=== PATIENT | female | born 1995 | race Caucasian/White ===

== ENCOUNTER → 2022-11-10 07:24 | Outpatient (CLI) | payer BC, SELFPAY ==
--- NOTE | ~2022-11-10 | US_ITS ---
EXAMINATION: US abdomen complete DATE: 11/10/2022 07:54 INDICATION: Unspecified abdominal pain TECHNIQUE: Multiple grayscale and Doppler ultrasound images of the abdomen were obtained. COMPARISON: None available FINDINGS: Bowel gas obscures visualization of the pancreas. The visualized portions of the pancreas a re unremarkable. The liver is normal with normal echogenicity and echotexture. No surface nodularity. Normal hepatopetal flow in the main portal vein. The gallbladder is normal with no abnormal wall thi ckening, pericholecystic fluid or stones. The normal common bile duct measures 4 mm. There was no son ographic Estrada sign. The visualized portions of the aorta and inferior vena cava are normal. The spleen measures 10.8 x 4.4 x 5.0 cm. There is a 1.8 cm hypoechoic area in the caudal aspect of th e spleen, consistent with a cyst, lymphangioma, or hemangioma. The right kidney measures 10.0 x 4.9 x 4.7 cm. The left kidney measures 10.5 x 5.1 x 4.8 cm. The kidneys demonstrate normal parenchymal ech ogenicity. There is no hydronephrosis. IMPRESSION: 1. No sonographic correlate for the patient's symptoms. Reviewed, dictated and finalized at location F. EONTOLOGIST
== END ==
PROVIDERS: PCP Nurse Practitioner Family; Visit Provider Nurse Practitioner Family
DX: R10.9 Unspecified abdominal pain (principal)
CPT/HCPCS: 76700

== ENCOUNTER 2024-02-01 14:30 | Emergency (ER) | payer BC, SELFPAY ==
[2024-02-01 14:41] VITALS: BP 123/84; PULSE 104; RESP 16; TEMP 36.8; O2SAT 98
--- NOTE | 2024-02-02 09:57 | ED.EYEPROB ---
HPI - Eye Problem General Chief complaint: Eye Problems Stated complaint: Bilateral Eye Irritation Time Seen by Provider: 02/01/24 14:59 Source: patient, RN notes reviewed and old records reviewed Mode of arrival: ambulatory Limitations: no limitations History of Present Illness HPI Narrative: 28-year-old female to [facility] for complaint of bilateral eye redness, irritation, discharge for 1 day. patient reports being sick 2 weeks ago with sore throat,, runny nose. Patient denies wearing contacts or eyeglasses. Patient denies any visual changes, current fever, allergies. Patient in no acute distress. Related Data Allergies Allergy/AdvReac Type Severity Reaction Status Date / Time No Known Allergies Allergy Verified 02/01/24 15:39 Review of Systems Review of Systems: All systems reviewed & are unremarkable except as noted in HPI and below Constitutional: Constitutional: Reports no additional constitutional complaints Eyes: Eyes: Reports as per HPI, Denies change in vision, Reports eye discharge, Reports irritation, Reports itchy eyes and Denies requires corrective lenses ENT: Reports system reviewed and no additional complaints, except as documented Cardiovascular: Cardiovascular: Reports no additional cardiovascular complaints, Denies chest pain and Denies dyspnea Respiratory: Respiratory: Reports no additional respiratory complaints, Denies cough and Denies dyspnea Musculoskeletal: Musculoskeletal: Reports no additional musculoskeletal complaints Neurologic: Reports system reviewed and no additional complaints, except as documented Psychiatric: Psychiatric: Reports no additional psychiatric complaints PMFSH Past Medical History Medical History BMI 24.0-24.9, adult BMI 25.0-25.9,adult BMI 26.0-26.9,adult Family History Family History Father Hyperlipidemia Mother No problems noted. Sibling No problems noted. Other Hypertension Thyroid condition Social History Social History Smoking status: Never smoker Second hand tobacco smoke exposure: No Alcohol intake: current Drinks per week: 3 Substance use: never Substance use type: does not use Do You Feel Safe in your Home?: Yes Lack of Transportation: No Lack of Food: Never True Current Housing: I Have Housing Concerned About Future Housing: No Difficulty Paying Gas/Electric Bills: No Difficulty Paying for Meds: No Currently Unemployed: No Education: Bachelor's Degree Difficulty w/ Childcare or Family Care: No Living arrangements: with roommate(s) Occupation/Education: occupation 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 There is no relevant family history pertinent to the patient complaint. Exam Const: General: cooperative, no acute distress, alert, in distress mild ( Eye discomfort), tired appearing, uncomfortable and well nourished Nutritional Appearance: well nourished Orientation/consciousness: patient oriented x3 Limitations: no limitations HENMT: Head: normal to inspection Ears: external ears normal Face/Nose/Sinus: Normal external nose present, Normal nares present, normal facial exam, No erythema and No edema Face and sinus: normal facial exam, no erythema and no edema Mouth: Yes Normal oral and palatal mucosa present Eyes: General: appearance abnormal, both eyes Visual Perkins: normal visual perkins by confrontation Alignment and Position: alignment normal and position normal Periorbital: periorbital findings normal Eyelids: eyelids normal Conjunctivae: conjunctival abnormality bilateral conju
== END 2024-02-01 15:48 | disposition home or self-care (01) ==
PROVIDERS: Emergency Provider Nurse Practitioner Family; PCP Family Medicine
DX: H10.9 Unspecified conjunctivitis (principal); H66.92 Otitis media, unspecified, left ear
CPT/HCPCS: 99213; G0463